=== PATIENT | female | born 1945 | race Caucasian/White ===

== ENCOUNTER 2023-08-16 19:01 | Emergency (ER) | payer SELFPAY ==
[~2023-08-16] VITALS: Ht 166.9 cm; Wt 85.7 kg
[2023-08-16 19:05] VITALS: BP 146/76; RESP 17; TEMP 97.7; O2SAT 96
[2023-08-16] MEDS: ACETAMINOPHEN EXTRA STRENGTH 500 MG TAB PO ONE (20:50)
[2023-08-16] MEDS ORDERED: CLIN300C2 PO (20:52)
[2023-08-16] MEDS ORDERED: ACET-10509 PO (20:52)
[2023-08-16] MEDS ORDERED: ACETAMINOPHEN EXTRA STRENGTH 500 MG TAB ONE (21:53)
== END 2023-08-16 22:10 | disposition home or self-care (01) ==
LOC: MED 19:01
DX: H66.92 Otitis media, unspecified, left ear (principal); H92.01 Otalgia, right ear; Z79.899 Other long term (current) drug therapy
CPT/HCPCS: 99283

== ENCOUNTER 2023-11-19 21:59 | Inpatient (IN) | payer OTHER ==
[~2023-11-19] VITALS: Ht 149.9 cm; Wt 84.8 kg
[~2023-11-19 21:59] MED LIST: ACET-10509 PO; CLIN300C2 PO
[2023-11-19 22:29] VITALS: BP 156/61; PULSE 63; RESP 18; TEMP 97.6; O2SAT 100
[2023-11-19] MEDS ORDERED: DICYCLOMINE HCL LIQUID 10 MG/5 ML UDC ONE (23:16)
[2023-11-19] MEDS ORDERED: ALUMINUM HYD/MAG/SIMETHICONE 30 ML UDC ONE (23:16)
[2023-11-19] MEDS: DICYCLOMINE HCL LIQUID 20 MG, ALUMINUM HYD/MAG/SIMETHICONE 30 ML, LIDOCAINE VISCOUS 2% ... PO ONE (23:34)
[2023-11-19] MEDS: ONDANSETRON 4 MG/2 ML VIAL IVP ONE (23:34)
[2023-11-19 23:58] LABS: BASOPHILS % (AUTO) 0.3 % (0.0-2.0); EOSINOPHILS # (AUTO) 0.1 K/uL (0-0.4); EOSINOPHILS % (AUTO) 0.6 % (0.0-4.0); HEMATOCRIT 35.8 % (36-48); HEMOGLOBIN 12.2 g/dL (12.0-16.0); LYMPHOCYTES # (AUTO) 1.5 K/uL (2.5-16.5); LYMPHOCYTES % (AUTO) 12.5 % (20.5-51.1); MEAN CORPUSCULAR HEMOGLOBIN 30 pg (27-31); MEAN CORPUSCULAR HGB CONC 34 g/dL (33-37); MEAN CORPUSCULAR VOLUME 88.9 fL (80-94); MONOCYTES # (AUTO) 0.5 K/uL (0.8-1.0); MONOCYTES % (AUTO) 4.6 % (1.7-9.3); NEUTROPHILS # (AUTO) 9.7 K/uL (1.8-7.7); PLATELET COUNT (AUTO) 234 K/uL (140-450); RED BLOOD CELL COUNT(AUTO) 4.03 MIL/uL (4.20-5.40); RED CELL DISTRIBUTION WIDTH 12.7 % (11.6-13.7); WHITE BLOOD COUNT (AUTO) 11.9 K/uL (4.8-10.8)
[2023-11-20 00:13] LABS: ANION GAP 8.1 (8-16); CALCIUM 9.6 mg/dL (8.5-10.1); CHLORIDE 95 mmol/L (98-107); CREATININE 0.9 mg/dL (0.6-1.3); GLUCOSE 155 mg/dL (74-106); POTASSIUM 4.1 mmol/L (3.5-5.1); SODIUM SERUM 127 mmol/L (136-145); UREA NITROGEN, BLOOD 15 mg/dL (7-18)
[2023-11-20 00:35] LABS: ALANINE AMINOTRANSFERASE 21 U/L (12-78); ALBUMIN 3.9 g/dL (3.4-5.0); ALKALINE PHOSPHATASE 102 U/L (50-136); ASPARTATE AMINOTRANSFERASE 19 U/L (15-37); BILIRUBIN,DIRECT 0.1 mg/dL (0.0-0.3); LIPASE 48 U/L (16-77); TOTAL BILIRUBIN 0.4 mg/dL (0.0-1.0); TOTAL PROTEIN, SERUM 7.9 g/dL (6.4-8.2)
[2023-11-20] MEDS: MORPHINE SULFATE 4 MG/ML SYR IVP ONE (01:53)
[2023-11-20 02:00] LABS: APPEARANCE,URINE CLEAR (CLEAR); BILIRUBIN,URINE NEGATIVE (NEGATIVE); BLOOD, URINE NEGATIVE (NEGATIVE); COLOR,URINE YELLOW (YELLOW); LEUKOCYTE ESTERASE ,URINE 1+ (NEGATIVE); NITRITE, URINE NEGATIVE (NEGATIVE); PROTEIN,URINE NEGATIVE (NEGATIVE); UGLUCOSE NEGATIVE (NEGATIVE)
[2023-11-20] MEDS: LEVOFLOXACIN 750 MG/D5W PREMIX 150 ML IV ONE (02:00)
[2023-11-20 02:22] LABS: BACTERIA,URINE FEW /HPF (None Seen); RBC,URINE 0-5 /HPF (0-5); SQUAMOUS EPITHELIAL CELL,UR 4-10 (MOD) /LPF (0-3 (FEW)); WBC,URINE 0-5 /HPF (0-5)
[2023-11-20] MEDS ORDERED: ASPI-1822 PO (04:16)
[2023-11-20] MEDS ORDERED: ENAL5TAB48 PO (04:16)
[2023-11-20] MEDS ORDERED: SYN.1 PO (04:16)
[2023-11-20] MEDS: metroNIDAZOLE 500 MG/NS PREMIX 100 ML IV ONE (05:10)
[2023-11-20] MEDS: LACTATED RINGERS 1,000 ML IV SCH (06:04)
[2023-11-20] MEDS: LEVOTHYROXINE 0.1 MG TAB PO SCH (06:10)
[2023-11-20 06:13] LABS: INR 0.99 (0.8-1.2); PARTIAL THROMBOPLASTIN TIME 33.5 secs (22-35.6); PROTHROMBIN TIME 10.4 secs (10.8-13.4)
[2023-11-20] MEDS: MEDS-TO-BEDS MC SCH (09:07)
[2023-11-20] MEDS: ENALAPRIL 5 MG TAB PO SCH (09:08)
[2023-11-20 09:40] VITALS: O2SAT 93
[2023-11-20 09:50] VITALS: BP 124/55; PULSE 62; RESP 19; TEMP 97.8; O2SAT 93
[2023-11-20] MEDS: ONDANSETRON 4 MG/2 ML VIAL IVP PRN (11:58)
[2023-11-20] MEDS: DEXT 5% /NACL 0.9% 1,000 ML IV SCH (12:53)
[2023-11-20] MEDS: metroNIDAZOLE 500 MG/NS PREMIX 100 ML IV SCH (13:09)
[2023-11-20 16:00] VITALS: BP 131/57; PULSE 70; RESP 19; TEMP 99.2; O2SAT 97
[2023-11-20] MEDS: MORPHINE SULFATE 2 MG/ML SYR IVP PRN (16:24)
[2023-11-20] MEDS: ACETAMINOPHEN 325 MG TAB PO PRN (19:50)
[2023-11-20 20:00] VITALS: BP 118/57; PULSE 74; PULSE 75; RESP 18; RESP 19; TEMP 97.5; O2SAT 96
[2023-11-21] MEDS: LEVOFLOXACIN 250 MG/D5 PREMIX 50 ML IV SCH (01:54)
[2023-11-21 04:00] VITALS: BP 121/59; PULSE 70; RESP 19; TEMP 97.6; O2SAT 96
[2023-11-21 06:59] LABS: BASOPHILS % (AUTO) 0.2 % (0.0-2.0); HEMATOCRIT 36.5 % (36-48); HEMOGLOBIN 12.6 g/dL (12.0-16.0); LYMPHOCYTES # (AUTO) 1.2 K/uL (2.5-16.5); LYMPHOCYTES % (AUTO) 6.5 % (20.5-51.1); MEAN CORPUSCULAR HEMOGLOBIN 31 pg (27-31); MEAN CORPUSCULAR HGB CONC 34 g/dL (33-37); MEAN CORPUSCULAR VOLUME 89.3 fL (80-94); MONOCYTES # (AUTO) 1.4 K/uL (0.8-1.0); MONOCYTES % (AUTO) 7.2 % (1.7-9.3); NEUTROPHILS # (AUTO) 16.2 K/uL (1.8-7.7); NEUTROPHILS % (AUTO) 86.1 % (42.2-75.2); PLATELET COUNT (AUTO) 204 K/uL (140-450); RED BLOOD CELL COUNT(AUTO) 4.08 MIL/uL (4.20-5.40); RED CELL DISTRIBUTION WIDTH 12.7 % (11.6-13.7); WHITE BLOOD COUNT (AUTO) 18.9 K/uL (4.8-10.8)
[2023-11-21 07:22] LABS: ALANINE AMINOTRANSFERASE 94 U/L (12-78); ALBUMIN 2.8 g/dL (3.4-5.0); ALKALINE PHOSPHATASE 122 U/L (50-136); ANION GAP 12.3 (8-16); ASPARTATE AMINOTRANSFERASE 106 U/L (15-37); CALCIUM 9.1 mg/dL (8.5-10.1); CARBON DIOXIDE 25.7 mmol/L (21-32); CHLORIDE 98 mmol/L (98-107); CREATININE 0.8 mg/dL (0.6-1.3); GLUCOSE 153 mg/dL (74-106); SODIUM SERUM 132 mmol/L (136-145); TOTAL BILIRUBIN 1.9 mg/dL (0.0-1.0); TOTAL PROTEIN, SERUM 6.8 g/dL (6.4-8.2); UREA NITROGEN, BLOOD 11 mg/dL (7-18)
[2023-11-21 08:00] VITALS: BP 122/56; PULSE 73; PULSE 78; RESP 18; TEMP 99; O2SAT 96
[2023-11-21] MEDS: LEVOFLOXACIN 500 MG/D5W PREMIX 100 ML IV SCH (13:39)
[2023-11-21 15:30] VITALS: BP 114/58; PULSE 98; RESP 18; TEMP 98.8; O2SAT 96
[2023-11-21] MEDS: BUPIVACAINE-MPF 0.25% 30 ML VIAL INJ ONE (15:41)
[2023-11-21] MEDS ORDERED: NEOSTIGMINE 1:1000 10 MG/10 ML VIAL ONE (16:05)
[2023-11-21] MEDS ORDERED: SEVOFLURANE 250 ML BTL INH ONE (16:05)
[2023-11-21] MEDS: LIDOCAINE/EPI 1% 1:100000 20 ML VIAL INJ ONE (16:05)
[2023-11-21] MEDS: fentaNYL citrate 0.05 MG/ML VIAL ONE (16:24)
[2023-11-21] MEDS: METOCLOPRAMIDE 10 MG/2 ML INJ VIAL ONE (16:54)
[2023-11-21] MEDS: LIDOCAINE MPF 2% 100 MG/5 ML VIAL INJ ONE (16:54)
[2023-11-21] MEDS: PROPOFOL 200 MG/20 ML VIAL IV ONE (16:54)
[2023-11-21] MEDS: ONDANSETRON 4 MG/2 ML VIAL ONE (16:54)
[2023-11-21] MEDS: ROCURONIUM 50 MG/5 ML VIAL IV ONE (16:54)
[2023-11-21] MEDS: PHENYLEPHRINE 10 MG/ML VIAL ONE (16:55)
[2023-11-21] MEDS: SODIUM 10 ML ONE (16:55)
[2023-11-21] MEDS: HYDROmorphone PFS 2 MG/ML SYR ONE (17:15)
[2023-11-21] MEDS ORDERED: ONDANSETRON 4 MG/2 ML VIAL IVP PRN (19:05)
[2023-11-21 20:00] VITALS: PULSE 100; RESP 18
[2023-11-21 23:13] VITALS: O2SAT 93
[2023-11-22] VITALS (8 sets, daily range): BP systolic 115–129; BP diastolic 59–72; PULSE 62–101; RESP 16–20; TEMP 97.4–99; O2SAT 93–98
[2023-11-22 06:54] LABS: HEMATOCRIT 34.9 % (36-48); HEMOGLOBIN 11.8 g/dL (12.0-16.0); LYMPHOCYTES # (AUTO) 0.7 K/uL (2.5-16.5); MEAN CORPUSCULAR HEMOGLOBIN 31 pg (27-31); MEAN CORPUSCULAR HGB CONC 34 g/dL (33-37); MEAN CORPUSCULAR VOLUME 90.4 fL (80-94); MONOCYTES # (AUTO) 0.8 K/uL (0.8-1.0); MONOCYTES % (AUTO) 6.9 % (1.7-9.3); NEUTROPHILS # (AUTO) 10.5 K/uL (1.8-7.7); NEUTROPHILS % (AUTO) 87.1 % (42.2-75.2); PLATELET COUNT (AUTO) 215 K/uL (140-450); RED BLOOD CELL COUNT(AUTO) 3.86 MIL/uL (4.20-5.40); RED CELL DISTRIBUTION WIDTH 12.9 % (11.6-13.7); WHITE BLOOD COUNT (AUTO) 12.1 K/uL (4.8-10.8)
[2023-11-22 07:11] LABS: ALANINE AMINOTRANSFERASE 70 U/L (12-78); ALBUMIN 2.3 g/dL (3.4-5.0); ALKALINE PHOSPHATASE 106 U/L (50-136); ANION GAP 10.5 (8-16); ASPARTATE AMINOTRANSFERASE 61 U/L (15-37); CALCIUM 8.9 mg/dL (8.5-10.1); CHLORIDE 100 mmol/L (98-107); GLUCOSE 169 mg/dL (74-106); POTASSIUM 4.5 mmol/L (3.5-5.1); SODIUM SERUM 135 mmol/L (136-145); TOTAL BILIRUBIN 0.8 mg/dL (0.0-1.0); TOTAL PROTEIN, SERUM 6.2 g/dL (6.4-8.2); UREA NITROGEN, BLOOD 12 mg/dL (7-18)
[2023-11-22] MEDS: NACL 0.9% 1,000 ML IV SCH (07:26)
[2023-11-23] VITALS (7 sets, daily range): BP systolic 115–122; BP diastolic 51–59; PULSE 74–114; RESP 18–20; TEMP 97.6–98.3; O2SAT 91–99
[2023-11-23] MEDS: LEVOFLOXACIN 500 MG/D5W PREMIX 100 ML IV SCH (09:20)
[2023-11-24 01:50] VITALS: O2SAT 98
[2023-11-24 08:00] VITALS: BP 116/58; PULSE 84; RESP 18; RESP 19; TEMP 97.7; O2SAT 96
[2023-11-24 09:46] LABS: BASOPHILS % (AUTO) 0.3 % (0.0-2.0); EOSINOPHILS % (AUTO) 0.4 % (0.0-4.0); HEMOGLOBIN 10.5 g/dL (12.0-16.0); LYMPHOCYTES # (AUTO) 1.1 K/uL (2.5-16.5); LYMPHOCYTES % (AUTO) 11.6 % (20.5-51.1); MEAN CORPUSCULAR HEMOGLOBIN 31 pg (27-31); MEAN CORPUSCULAR HGB CONC 35 g/dL (33-37); MEAN CORPUSCULAR VOLUME 88.9 fL (80-94); MONOCYTES # (AUTO) 0.6 K/uL (0.8-1.0); MONOCYTES % (AUTO) 6.5 % (1.7-9.3); NEUTROPHILS # (AUTO) 7.9 K/uL (1.8-7.7); NEUTROPHILS % (AUTO) 81.2 % (42.2-75.2); PLATELET COUNT (AUTO) 291 K/uL (140-450); RED BLOOD CELL COUNT(AUTO) 3.37 MIL/uL (4.20-5.40); RED CELL DISTRIBUTION WIDTH 13.1 % (11.6-13.7); WHITE BLOOD COUNT (AUTO) 9.7 K/uL (4.8-10.8)
[2023-11-24 10:13] LABS: ALANINE AMINOTRANSFERASE 134 U/L (12-78); ALBUMIN 2.1 g/dL (3.4-5.0); ALKALINE PHOSPHATASE 94 U/L (50-136); ASPARTATE AMINOTRANSFERASE 96 U/L (15-37); CALCIUM 8.8 mg/dL (8.5-10.1); CARBON DIOXIDE 26.3 mmol/L (21-32); CHLORIDE 105 mmol/L (98-107); CREATININE 0.7 mg/dL (0.6-1.3); GLUCOSE 174 mg/dL (74-106); POTASSIUM 3.3 mmol/L (3.5-5.1); SODIUM SERUM 140 mmol/L (136-145); TOTAL BILIRUBIN 0.4 mg/dL (0.0-1.0); TOTAL PROTEIN, SERUM 6.4 g/dL (6.4-8.2); UREA NITROGEN, BLOOD 12 mg/dL (7-18)
[2023-11-24 10:15] VITALS: O2SAT 96
[2023-11-24] MEDS: POTASSIUM CHLORIDE 40 MEQ, LIDOCAINE 1% 25 MG in NACL 0.9% 250 ML IV SCH (14:17)
[2023-11-24 16:00] VITALS: BP 105/62; PULSE 73; RESP 18; TEMP 96.5; O2SAT 92
[2023-11-24 19:45] VITALS: O2SAT 97
[2023-11-24 20:00] VITALS: PULSE 84; RESP 18; O2SAT 98
[2023-11-25] VITALS (7 sets, daily range): BP systolic 111–123; BP diastolic 62–76; PULSE 80–90; RESP 17–18; TEMP 96.1–98; O2SAT 92–98
[2023-11-25 08:25] LABS: BASOPHILS % (AUTO) 0.3 % (0.0-2.0); EOSINOPHILS # (AUTO) 0.1 K/uL (0-0.4); EOSINOPHILS % (AUTO) 1.5 % (0.0-4.0); HEMATOCRIT 31.1 % (36-48); HEMOGLOBIN 10.6 g/dL (12.0-16.0); LYMPHOCYTES # (AUTO) 1.1 K/uL (2.5-16.5); LYMPHOCYTES % (AUTO) 13.6 % (20.5-51.1); MEAN CORPUSCULAR HEMOGLOBIN 31 pg (27-31); MEAN CORPUSCULAR HGB CONC 34 g/dL (33-37); MEAN CORPUSCULAR VOLUME 89.5 fL (80-94); MONOCYTES # (AUTO) 0.6 K/uL (0.8-1.0); MONOCYTES % (AUTO) 7.3 % (1.7-9.3); NEUTROPHILS # (AUTO) 6.5 K/uL (1.8-7.7); NEUTROPHILS % (AUTO) 77.3 % (42.2-75.2); PLATELET COUNT (AUTO) 329 K/uL (140-450); RED BLOOD CELL COUNT(AUTO) 3.47 MIL/uL (4.20-5.40); WHITE BLOOD COUNT (AUTO) 8.4 K/uL (4.8-10.8)
[2023-11-25 08:42] LABS: ALANINE AMINOTRANSFERASE 100 U/L (12-78); ALBUMIN 2.2 g/dL (3.4-5.0); ALKALINE PHOSPHATASE 92 U/L (50-136); ANION GAP 10.9 (8-16); ASPARTATE AMINOTRANSFERASE 54 U/L (15-37); CALCIUM 8.6 mg/dL (8.5-10.1); CARBON DIOXIDE 27.4 mmol/L (21-32); CHLORIDE 107 mmol/L (98-107); CREATININE 0.7 mg/dL (0.6-1.3); GLUCOSE 169 mg/dL (74-106); POTASSIUM 3.3 mmol/L (3.5-5.1); SODIUM SERUM 142 mmol/L (136-145); TOTAL BILIRUBIN 0.4 mg/dL (0.0-1.0); TOTAL PROTEIN, SERUM 6.5 g/dL (6.4-8.2); UREA NITROGEN, BLOOD 13 mg/dL (7-18)
[2023-11-25] MEDS ORDERED: LEVO-481 PO (11:14)
[2023-11-25] MEDS: POTASSIUM CHLORIDE 10 MEQ TABER PO PRN (13:05)
[2023-11-26] VITALS: BP 117/60; PULSE 83; RESP 18; TEMP 97.8; O2SAT 97
[2023-11-26 08:00] VITALS: BP 132/71; PULSE 82; RESP 18; TEMP 97.1; O2SAT 94
[2023-11-26 08:13] VITALS: O2SAT 92
[2023-11-26 12:57] VITALS: BP 132/71; PULSE 82; RESP 18; TEMP 97.1
== END 2023-11-26 13:30 | disposition home or self-care (01) | DRG 263 ==
LOC: MED 21:59 → MTU 11-20 05:54
PROVIDERS: ADMIT Hospitalist; ATTEND Hospitalist
PROC: 0FT44ZZ Resection of Gallbladder, Percutaneous Endoscopic Approach (ICD-10-PCS; principal; 2023-11-21 16:00)
DX: K80.00 Calculus of gallbladder with acute cholecystitis without obstruction (principal); K56.7 Ileus, unspecified; E03.9 Hypothyroidism, unspecified; I10 Essential (primary) hypertension; K91.89 Other postprocedural complications and disorders of digestive system; Z79.899 Other long term (current) drug therapy
CPT/HCPCS: 36415; 71045; 74018; 76705; 80048; 80053; 80076; 81001; 82948; 83690; 84484; 85025; 85610; 85730; 87040; 87081; 87086; 88304; 93005; 96365; 96367; 96375; 97110; 97116; 97163-GP; 97530; 99285; J1170; J1956; J2001; J2270; J2370; J2405; J2704; J2710; J2765; J3010; J3480; J3490; J7030; Q0092